=== PATIENT | female | born 1980 | race Caucasian/White ===

== ENCOUNTER 2020-06-12 16:05 | Outpatient (CLI) | payer MEDICAID ==
--- NOTE | 2020-06-13 07:47 | ULT ---
Pelvic sonogram transabdominal and transvaginal imaging with duplex evaluation HISTORY: Pelvic pain. FINDINGS: Urinary bladder is decompressed. Uterus has a heterogeneous echotexture and to 6.7 cm lengt h. Echogenic structure within the endometrial cavity consistent with contraceptive device. Not wider than the IUD. No free fluid in the pelvis. Right ovary is 4.4 cm length and left is 5.7 cm. Each shows follicles and demonstrates good color and spectral Doppler flow. IMPRESSION : IUD in place. No abnormalities are demonstrated.
== END 2020-06-12 16:06 | disposition home or self-care (01) ==
LOC: BICULT 16:05
PROVIDERS: ATTEND Nurse Practitioner Women's Health
DX: R10.2 Pelvic and perineal pain (principal); Z97.5 Presence of (intrauterine) contraceptive device
CPT/HCPCS: 76856

== ENCOUNTER 2022-03-11 23:40 | Emergency (ER) | payer MEDICAID, SELFPAY ==
[2022-03-12 00:21] LABS: #Eosinphils 0.1 thou/uL (0.0-0.7); #Lymphocytes 2.7 thou/uL (1.20-3.40); #Monocytes 0.7 thou/uL (0.11-0.59); #Neutrophils 6.3 thou/uL (1.40-6.50); %Basophils 0.4 % (0.0-1.0); %Lymphocytes 27.4 % (21.0-51.0); %Monocytes 7.3 % (0.0-10.0); Hemoglobin 13.4 g/dL (12.0-16.0); Mean Corpuscular HGB CONC 34.2 g/dL (32.0-36.0); Mean Corpuscular Hemoglobin 34.2 pg (27.0-31.0); Mean Platelet Volume 7.1 fL (7.4-10.4); Platelet Count 279 thou/uL (130-400); RBC Distribution Width 10.7 % (11.5-14.5); Red Blood Cell (RBC) Count 3.91 mill/uL (4.20-5.40); White Blood Cell (WBC) Count 9.8 thou/uL (4.8-10.8)
[2022-03-12 00:39] LABS: BHCG - Serum Negative (NEGATIVE); Pregs Control Background? CLEAR/WHITE (CLR/WHITE); Pregs Control Bar Appear? YES (CONTROL BAR)
[2022-03-12 00:41] LABS: ALT (SGPT) 14 U/L (8-55); AST (SGOT) 17 U/L (5-34); Albumin 4.5 g/dL (3.5-5.0); Alkaline Phosphatase 40 U/L (40-110); Anion Gap 11 mmol/L (10-20); BUN (Urea Nitrogen) 18 mg/dL (7.0-18.7); Bilirubin, Total 0.3 mg/dL (0.2-1.2); Calc. Creatinine Clearance 0 mL/min (70-130); Calcium 9.6 mg/dL (7.8-10.44); Carbon Dioxide 27 mmol/L (22-29); Chloride 103 mmol/L (98-107); Globulin 3.2 g/dL (2.4-3.5); Glucose 90 mg/dL (70-105); Magnesium 2.3 mg/dL (1.6-2.6); Potassium 3.9 mmol/L (3.5-5.1); Protein, Total 7.7 g/dL (6.0-8.3); Sodium 137 mmol/L (136-145)
== END 2022-03-12 01:57 | disposition home or self-care (01) ==
LOC: ERS 23:40
DX: R56.9 Unspecified convulsions (principal); F17.200 Nicotine dependence, unspecified, uncomplicated
CPT/HCPCS: 70450; 80053; 83735; 84703; 85025; 93005

== ENCOUNTER 2022-04-07 19:24 | Emergency (ER) | payer SELFPAY ==
[~2022-04-07 19:24] MED LIST: ISOVUE-370 76%-LOCM 1 ML ONE
[2022-04-07] MEDS ORDERED: Lorazepam 2 MG/ML VIAL ONE (20:09)
[2022-04-07] MEDS ORDERED: Morphine 4 MG/ML VIAL ONE (20:09)
[2022-04-07] MEDS ORDERED: Ondansetron PF 4 MG/2 ML Vial ONE (20:09)
[2022-04-07 21:39] LABS: #Basophils 0.1 thou/uL (0.0-0.2); #Eosinphils 0.1 thou/uL (0.0-0.7); #Lymphocytes 1.8 thou/uL (1.20-3.40); #Monocytes 0.5 thou/uL (0.11-0.59); #Neutrophils 4.7 thou/uL (1.40-6.50); %Basophils 0.8 % (0.0-1.0); %Eosinophils 0.9 % (0.0-10.0); %Lymphocytes 25.3 % (21.0-51.0); %Monocytes 6.4 % (0.0-10.0); %Neutrophils 66.6 % (42.0-75.0); Hemoglobin 11.8 g/dL (12.0-16.0); Mean Corpuscular HGB CONC 33.1 g/dL (32.0-36.0); Mean Corpuscular Hemoglobin 33.6 pg (27.0-31.0); Mean Platelet Volume 6.9 fL (7.4-10.4); Platelet Count 267 thou/uL (130-400); RBC Distribution Width 11.1 % (11.5-14.5)
[2022-04-07 21:50] LABS: BHCG - Serum Negative (NEGATIVE); Pregs Control Background? CLEAR/WHITE (CLR/WHITE); Pregs Control Bar Appear? YES (CONTROL BAR)
[2022-04-07 22:06] LABS: ALT (SGPT) 13 U/L (8-55); AST (SGOT) 24 U/L (5-34); Albumin 4.2 g/dL (3.5-5.0); Alkaline Phosphatase 40 U/L (40-110); Anion Gap 15 mmol/L (10-20); BUN (Urea Nitrogen) 9 mg/dL (7.0-18.7); Bilirubin, Total 0.4 mg/dL (0.2-1.2); Calc. Creatinine Clearance 0 mL/min (70-130); Calcium 8.3 mg/dL (7.8-10.44); Carbon Dioxide 19 mmol/L (22-29); Chloride 111 mmol/L (98-107); Estimated GFR 101; Glucose 76 mg/dL (70-105); Lipase 10 U/L (8-78); Potassium 3.4 mmol/L (3.5-5.1); Protein, Total 7.2 g/dL (6.0-8.3); Sodium 142 mmol/L (136-145)
== END 2022-04-07 23:55 | disposition home or self-care (01) ==
LOC: ERS 19:24
DX: S39.91XA Unspecified injury of abdomen, initial encounter (principal); F17.200 Nicotine dependence, unspecified, uncomplicated; G40.909 Epilepsy, unspecified, not intractable, without status epilepticus; Y04.0XXA Assault by unarmed brawl or fight, initial encounter; Z79.899 Other long term (current) drug therapy
CPT/HCPCS: 36415; 74177; 80053; 83690; 84703; 85025; 93005; 96361; 96374; 96375; J2060; J2270; J2405; Q9966

== ENCOUNTER 2023-01-12 18:25 | Emergency (ER) | payer SELFPAY ==
[~2023-01-12 18:25] MED LIST changes: -ISOVUE-370 76%-LOCM 1 ML ONE; +Iopamidol-370 76% 500 ML MDV (1 ML CHARGE) ONE
[2023-01-12] MEDS ORDERED: Morphine 4 MG/ML VIAL ONE (19:08)
[2023-01-12] MEDS ORDERED: Ondansetron PF 4 MG/2 ML Vial ONE (19:08)
[2023-01-12 19:21] LABS: #Basophils 0.1 thou/uL (0.0-0.2); #Lymphocytes 1.9 thou/uL (1.20-3.40); #Monocytes 0.9 thou/uL (0.11-0.59); #Neutrophils 6.3 thou/uL (1.40-6.50); %Basophils 0.7 % (0.0-1.0); %Eosinophils 0.5 % (0.0-10.0); %Monocytes 9.4 % (0.0-10.0); %Neutrophils 68.5 % (42.0-75.0); Hemoglobin 11.8 g/dL (12.0-16.0); Mean Corpuscular HGB CONC 34.2 g/dL (32.0-36.0); Mean Corpuscular Hemoglobin 34.2 pg (27.0-31.0); Platelet Count 271 10x3/uL (130-400); RBC Distribution Width 10.9 % (11.5-14.5); Red Blood Cell (RBC) Count 3.46 mill/uL (4.20-5.40); White Blood Cell (WBC) Count 9.2 10x3/uL (4.8-10.8)
[2023-01-12 19:45] LABS: ALT (SGPT) 18 U/L (8-55); AST (SGOT) 37 U/L (5-34); Albumin 4.4 g/dL (3.5-5.0); Alkaline Phosphatase 58 U/L (40-110); Anion Gap 15 mmol/L (10-20); BUN (Urea Nitrogen) 22 mg/dL (7.0-18.7); Bilirubin, Total 0.3 mg/dL (0.2-1.2); Calc. Creatinine Clearance 0 mL/min (70-130); Calcium 9.5 mg/dL (7.8-10.44); Carbon Dioxide 23 mmol/L (22-29); Chloride 101 mmol/L (98-107); Estimated GFR 102; Globulin 3.3 g/dL (2.4-3.5); Glucose 110 mg/dL (70-105); Lipase 21 U/L (8-78); Potassium 3.1 mmol/L (3.5-5.1); Protein, Total 7.7 g/dL (6.0-8.3); Sodium 136 mmol/L (136-145)
[2023-01-12 20:28] LABS: BHCG - Serum Negative (NEGATIVE); Pregs Control Background? CLEAR/WHITE (CLR/WHITE); Pregs Control Bar Appear? YES (CONTROL BAR)
[2023-01-12 20:50] LABS: Bilirubin Negative (Negative); Blood, Urine Negative (Negative); Clarity Clear (Clear); Glucose, Urine (Dipstick) Normal (Negative); Ketone, Urine Negative (Negative); Leukocyte Negative Leu/uL (Negative); Nitrite Negative (Negative); Protein, Urine (Dipstick) Negative (Neg-Trace); Specific Gravity, Urine 1.011 (1.002-1.036); Urobilinogen Normal mg/dL (Less than 2)
[2023-01-12] MEDS ORDERED: Ketorolac Tromethamine 30 MG/ML VIAL ONE (21:40)
== END 2023-01-12 23:05 | disposition home or self-care (01) ==
LOC: ERS 18:25
DX: R10.32 Left lower quadrant pain (principal); F17.200 Nicotine dependence, unspecified, uncomplicated
CPT/HCPCS: 71045; 74177; 80053; 81003; 83605; 83690; 84484; 84703; 85025; 93005; 96361; 96374; 96375; J1885; J2270; J2405; Q9967